=== PATIENT | female | born 1985 | race Caucasian/White ===

== ENCOUNTER 2019-04-18 11:11 | Emergency (ER) | payer OTHER ==
[~2019-04-18] VITALS: Ht 172.7 cm; Wt 70.3 kg
[2019-04-18 11:11] VITALS: BP_SYST 123
--- NOTE | 2019-04-18 11:11 | NUR ---
BROUGHT BACK TO BED #8 AND TRIAGED. REPORT GIVEN TO ANNA
--- NOTE | 2019-04-18 11:21 | NUR ---
Pt c/o abd pain w/cramping since approx 0200 with one episode of vomiting lasting 60sec. Pt is 16wks preg.
--- NOTE | 2019-04-18 11:30 | NUR ---
MASHA Butler at bedside examining patient.
[2019-04-18] MEDS ORDERED: NACL 0.9% 1,000 ML IV ONE (11:45)
[2019-04-18] MEDS ORDERED: ACETAMINOPHEN 500 MG TABLET PO ONE (11:45)
[2019-04-18] MEDS ORDERED: METOCLOPRAMIDE HCL 10 MG/2 ML VIAL IVP ONE (11:45)
[2019-04-18 12:28] LABS: BASOPHILS % (AUTO) 0.2 % (0.0-2.0); HEMOGLOBIN 14.1 g/dL (12.0-16.0); LYMPHOCYTES # (AUTO) 0.4 K/uL (1.0-5.5); LYMPHOCYTES % (AUTO) 3.5 % (20.5-51.5); MEAN CORPUSCULAR HEMOGLOBIN 31 pg (27-31); MEAN CORPUSCULAR HGB CONC 35 % (32-36); MEAN CORPUSCULAR VOLUME 90 fL (79.0-98.0); MONOCYTES # (AUTO) 0.4 K/uL (0.0-1.0); MONOCYTES % (AUTO) 3.9 % (1.7-9.3); NEUTROPHILS # (AUTO) 10.5 K/uL (1.8-7.7); NEUTROPHILS % (AUTO) 92.4 % (40.0-70.0); PLATELET COUNT (AUTO) 186 K/uL (130-430); RED BLOOD CELL COUNT(AUTO) 4.53 MIL/uL (4.2-6.2); RED CELL DISTRIBUTION WIDTH 13.6 % (9.0-15.0); WHITE BLOOD COUNT (AUTO) 11.4 K/uL (4.8-10.8)
--- NOTE | 2019-04-18 12:30 | NUR ---
Pt tolerated medication well.
[2019-04-18 12:37] LABS: CALCIUM 8.4 mg/dL (8.4-11.0); CREATININE 0.62 mg/dL (0.55-1.30); POTASSIUM 3.7 mmol/L (3.5-5.1)
[2019-04-18 12:43] LABS: ALBUMIN 2.8 g/dL (3.4-4.8); TOTAL BILIRUBIN 0.3 mg/dL (0.0-1.0)
--- NOTE | 2019-04-18 13:25 | NUR ---
Patient transported to radiology via WC, accompanied by RAD STAFF.
--- NOTE | 2019-04-18 13:45 | NUR ---
Returned from radiology, back to [facility].
[2019-04-18 13:48] VITALS: BP_SYST 123
--- NOTE | 2019-04-18 13:48 | NUR ---
Patient given written and verbal discharge instructions and verbalizes understanding. ER MD discussed with patient the results and treatment provided. Patient in stable condition. ID arm band removed. IV catheter removed intact and dressing applied, no active bleeding. Rx of REGLAN given. Patient educated on pain management and to follow up with PMD. Pain Scale 0. Opportunity for questions provided and answered. Medication side effect fact sheet provided.
[2019-04-18 14:37] LABS: BILIRUBIN,URINE NEGATIVE (NEGATIVE); BLOOD, URINE NEGATIVE (NEGATIVE); CLARITY/URINE CLEAR (CLEAR); COLOR,URINE YELLOW (YELLOW); GLUCOSE,URINE NEGATIVE (NEGATIVE); KETONES,URINE 2+ (NEGATIVE); LEUKOCYTE ESTERASE ,URINE NEGATIVE (NEGATIVE); NITRITE, URINE NEGATIVE (NEGATIVE); PROTEIN URINE NEGATIVE (NEGATIVE); UROBILINOGEN,URINE 0.2 (0.2-1.0)
== END 2019-04-18 13:48 | disposition home or self-care (01) ==
LOC: SED 11:11
DX: O9A.212 Injury, poisoning and certain other consequences of external causes complicating pregnancy, second trimester (principal); T62.91XA Toxic effect of unspecified noxious substance eaten as food, accidental (unintentional), initial encounter; Z3A.16 16 weeks gestation of pregnancy; Y92.89 Other specified places as the place of occurrence of the external cause
CPT/HCPCS: 36415; 76805; 80053; 81003; 83690; 85025; 96361; 96374; 99284; J2765; J7030